=== PATIENT | male | born 1940 | race Caucasian/White ===

== ENCOUNTER 2025-02-20 07:37 | Outpatient (CLI) | payer MEDICARE, SELFPAY ==
--- NOTE | ~2025-02-20 | DEXA_ITS ---
Bone Density Report Name: TOREY MCCARTY Age: 84 Sex: Male Ethnicity: White Date of : 1940 Indication: screening for osteoporosis; height loss; cancer; Referring Provider: GIULIA BRICE Study: Bone densitometry was performed. Exam Date: February 20, 2025 Accession number: [id number] Bone Density: Region BMD T-score Z-score Classification AP Spine(L1-L4) 1.259 1.5 2.8 Normal Femoral Neck (Left) 0.784 -1.1 0.6 Osteopenia Total Hip (Left) 0.896 -0.9 0.3 Normal Femoral Neck (Right) 0.688 -1.8 -0.1 Osteopenia Total Hip (Right) 0.793 -1.6 -0.4 Osteopenia Total Hip Mean 0.845 -1.3 -0.1 Osteopenia World Health Organization criteria for BMD impression classify patients as: Normal (T-score at or above -1.0), Osteopenia (T-score between -1.0 and -2.5), or Osteoporosis (T-score at or below -2.5). 10-year Fracture Risk(1): Major Osteoporotic Fracture 7.8% Hip Fracture 3.1% Reported Risk Factors: [place] (), Neck BMD=0.688, BMI=30.0 (1) FRAX(R) Version 3.08. Fracture probability calculated for an untreated patient. Fracture probability may be lower if the patient has received treatment. Clinical Information Provided by Patient: Has used the following medications: Vitamin D, Calcium Has the following medical conditions: Cancer, bladder and prostate cancer Patient maximum height was 72 No regular weight bearing exercise Impression: The patient has low bone mass, based on the Right Femoral Neck T-score. The patient has an estimated ten-year risk of hip fracture of 3.1% and an estimated ten-year risk of major fracture of 7.8%, based on the WHO FRAX algorithm. Discussion: BONE DENSITY IS LOW AT ONE OR MORE SKELETAL SITES. THE PATIENT'S BMD AND CLINICAL RISK FACTORS CONTRIBUTE TO THIS PATIENT'S INCREASED RISK OF FRACTURE. This patient's lowest T-score is low at one or more skeletal sites. It meets the World Health Organization's (WHO) criteria for ?low bone mass? (T-score between -1.0 and -2.5). The patient's 10-year risk of hip fracture as calculated by FRAX exceeds the threshold where pharmacological therapy is recommended by the National Osteoporosis Foundation (NOF). However, all treatment decisions require clinical judgment and consideration of individual patient factors, including patient preferences, comorbidities, previous drug use, risk factors not captured in the FRAX model (e.g., frailty, falls, vitamin D deficiency, increased bone turnover, interval significant decline in bone density) and possible under or overestimation of fracture risk by FRAX. The patient should follow a healthful lifestyle (good nutrition with adequate calcium and vitamin D, and appropriate weight-bearing exercise). Follow-Up: Consider repeating this study in 2 years to reassess this patient's status, or sooner if there is some new clinical indication. Reported by: TIM on 02/20/2025 8:16:00 AM. Reviewed, dictated and finalized at location A.
== END 2025-02-20 07:38 | disposition home or self-care (01) ==
LOC: MICIMG 07:44
DX: M54.16 Radiculopathy, lumbar region (principal); M48.56XA Collapsed vertebra, not elsewhere classified, lumbar region, initial encounter for fracture; M85.852 Other specified disorders of bone density and structure, left thigh; M85.851 Other specified disorders of bone density and structure, right thigh
CPT/HCPCS: 77080